=== PATIENT | male | born 1985 | race African-American/Black ===

== ENCOUNTER 2025-11-03 12:42 | Emergency (ER) | payer MEDICAID ==
[~2025-11-03] VITALS: Ht 175.3 cm; Wt 73.0 kg
[2025-11-03 12:50] VITALS: O2SAT 99
[2025-11-03 12:52] VITALS: BP 144/102; PULSE 96; RESP 18; TEMP 36.7; O2SAT 98
== END 2025-11-03 13:52 | disposition left against medical advice (07) ==
LOC: ER 12:42
DX: R51.9 Headache, unspecified (principal); F41.9 Anxiety disorder, unspecified
CPT/HCPCS: 99281